=== PATIENT | female | born 1955 | race Caucasian/White ===

== ENCOUNTER 2016-07-27 07:42 | Emergency (ER) | payer BC ==
[~2016-07-27] VITALS: Ht 157.5 cm; Wt 53.2 kg
[~2016-07-27 07:42] MED LIST: XANAX0.25 M1 PO
[2016-07-27] MEDS ORDERED: DURAGESIC25 MCG/PAT TD (07:49)
[2016-07-27] MEDS ORDERED: ALPRAZOLAM0.25 MG PO (07:50)
[2016-07-27] MEDS ORDERED: FUROSEMIDE20 MG PO (07:50)
[2016-07-27] MEDS ORDERED: FENTANYL12.5 MCG/H TD (09:29)
[2016-07-27 09:43] VITALS: BP 111/65
== END 2016-07-27 09:39 | disposition home or self-care (01) ==
LOC: ED 07:42
DX: R07.89 Other chest pain (principal); S20.211A Contusion of right front wall of thorax, initial encounter; S20.212A Contusion of left front wall of thorax, initial encounter; R07.1 Chest pain on breathing; M81.0 Age-related osteoporosis without current pathological fracture; W51.XXXA Accidental striking against or bumped into by another person, initial encounter; Y92.009 Unspecified place in unspecified non-institutional (private) residence as the place of occurrence of the external cause; G89.29 Other chronic pain

== ENCOUNTER 2017-04-14 21:39 | Emergency (ER) | payer BC ==
[~2017-04-14] VITALS: Ht 157.5 cm; Wt 51.8 kg
[~2017-04-14 21:39] MED LIST changes: +ALPRAZOLAM0.25 MG PO; +DURAGESIC25 MCG/PAT TD; +FENTANYL12.5 MCG/H TD; +FUROSEMIDE20 MG PO
[2017-04-14 22:33] LABS: HEMATOCRIT 35.8 % (37.0-47.0); HEMOGLOBIN 11.6 g/dL (12.5-16.0); MEAN CELL VOLUME 86 fl (78-100); MEAN CORPUSCULAR HEMOGLOBIN 28 pg (27-31); MEAN CORPUSCULAR HGB CONC 32 g/dL (33-37); MEAN PLATELET VOLUME 9.8 fl (7.4-10.4); PLATELET COUNT 185 K/mm3 (130-400); RED BLOOD COUNT 4.17 M/mm3 (4.10-5.30); RED CELL DISTRIBUTION WIDTH 15.2 % (11.5-14.5); WHITE BLOOD COUNT 3.9 K/mm3 (4.8-10.8)
[2017-04-14 22:46] LABS: ALBUMIN 3.8 g/dL (3.5-5.0); BUN/CREATININE RATIO 28.7 (6.0-26.0); CALCIUM 8.9 mg/dL (8.4-10.2); POTASSIUM 3.5 mmol/L (3.6-5.0); TOTAL BILIRUBIN 0.4 mg/dL (0.2-1.3); TOTAL PROTEIN 6.5 g/dL (6.3-8.2)
[2017-04-14 23:00] LABS: PROTHROMBIN TIME 10.2 SECONDS (9.0-12.0)
[2017-04-14 23:02] LABS: BAND 4 % (0-10); LYMPHOCYTE 14 % (20-51); MONOCYTE 14 % (3-10); NEUTROPHILS 67 % (42-75)
[2017-04-14 23:10] LABS: PARTIAL THROMBOPLASTIN TIME 26.7 SECONDS (21.0-32.0)
[2017-04-15] MEDS ORDERED: POTASSIUM CHLO20 ME4 PO (04:24)
[2017-04-15 04:35] VITALS: BP 112/60
== END 2017-04-15 04:35 | disposition home or self-care (01) ==
LOC: ED 21:39
PROVIDERS: Family Medicine
DX: R07.89 Other chest pain (principal); G89.29 Other chronic pain

== ENCOUNTER → 2017-09-01 | Outpatient (CLI) | payer BC ==
[~2017-09-01] MED LIST changes: +POTASSIUM CHLO20 ME4 PO
== END ==
LOC: RAD 09:45
DX: M19.011 Primary osteoarthritis, right shoulder (principal)

== ENCOUNTER → 2020-03-04 | Outpatient (CLI) | payer BC ==
[2019-05-20 21:35] VITALS: BP 116/73
[~2020-03-04] MED LIST changes: +5 HTP PO; +ALENDRONATE SODI5 MG PO; +CALCIUM/MAGNESI1 T17 PO; +LEADER MELATONIN5 MG PO; +VIT D3 PO; +[UNRECOGNIZED DRUG - OTHER] PO
== END ==
LOC: MAMMO 02-19 10:00
DX: Z12.31 Encounter for screening mammogram for malignant neoplasm of breast (principal)

== ENCOUNTER → 2021-03-31 | Outpatient (CLI) | payer MEDICARE, OTHER | LOC: RAD 03-17 08:08 | DX: M47.816 Spondylosis without myelopathy or radiculopathy, lumbar region (principal); M41.86 Other forms of scoliosis, lumbar region; M48.54XA Collapsed vertebra, not elsewhere classified, thoracic region, initial encounter for fracture ==

== ENCOUNTER → 2021-05-27 | Outpatient (CLI) | payer MEDICARE, OTHER | LOC: RAD 13:49 | DX: M47.816 Spondylosis without myelopathy or radiculopathy, lumbar region (principal); M41.86 Other forms of scoliosis, lumbar region; M48.07 Spinal stenosis, lumbosacral region; G95.20 Unspecified cord compression ==

== ENCOUNTER → 2021-07-07 | Day surgery (SDC) | payer MEDICARE, OTHER | END | disposition home or self-care (01) | LOC: MSO 02:08 | DX: H25.812 Combined forms of age-related cataract, left eye (principal) | CPT/HCPCS: 00142; J0171; J2250; V2632 ==

== ENCOUNTER → 2021-08-04 | Day surgery (SDC) | payer MEDICARE, OTHER | LOC: MSO 12:05 | DX: H25.811 Combined forms of age-related cataract, right eye (principal) | CPT/HCPCS: 00142; J0171; J2250; V2632 ==

== ENCOUNTER → 2021-12-22 | Outpatient (CLI) | payer MEDICARE, OTHER | LOC: RAD 07:54 | DX: M16.12 Unilateral primary osteoarthritis, left hip (principal) ==

== ENCOUNTER → 2022-03-23 | Outpatient (CLI) | payer MEDICARE, OTHER | LOC: MAMMO 08:41 | DX: Z12.31 Encounter for screening mammogram for malignant neoplasm of breast (principal); M81.0 Age-related osteoporosis without current pathological fracture; Z79.83 Long term (current) use of bisphosphonates; Z87.81 Personal history of (healed) traumatic fracture ==

== ENCOUNTER → 2022-03-23 | Outpatient (CLI) | payer MEDICARE, OTHER | LOC: MAMMO 08:45 → RAD 08:45 → MAMMO 09:15 | DX: Z13.820 Encounter for screening for osteoporosis (principal); Z12.31 Encounter for screening mammogram for malignant neoplasm of breast; M81.0 Age-related osteoporosis without current pathological fracture; Z78.0 Asymptomatic menopausal state ==

== ENCOUNTER → 2022-05-19 | Outpatient (CLI) | payer MEDICARE, OTHER | LOC: RAD 05-18 08:45 | DX: N26.1 Atrophy of kidney (terminal) (principal); N18.32 Chronic kidney disease, stage 3b ==

== ENCOUNTER → 2023-07-19 | Outpatient (CLI) | payer MEDICARE, OTHER ==
[2023-09-07 10:53] LABS: CREATININE OTHER SOURCE AMS
[2023-09-07 11:46] LABS: CALCIUM 10.1 mg/dL (8.3-10.5)
== END ==
LOC: LAB 07:15
PROVIDERS: Internal Medicine Nephrology
DX: N18.32 Chronic kidney disease, stage 3b (principal); E87.6 Hypokalemia; D63.1 Anemia in chronic kidney disease

== ENCOUNTER → 2023-08-14 | Day surgery (SDC) | payer MEDICARE, OTHER ==
[~2023-08-14] MED LIST changes: +Lidocaine PF 2% (20 MG/ML) 2 ML VIAL ONE
== END | disposition home or self-care (01) ==
LOC: MSO 07:33
DX: Z12.11 Encounter for screening for malignant neoplasm of colon (principal); Z85.048 Personal history of other malignant neoplasm of rectum, rectosigmoid junction, and anus
CPT/HCPCS: 00812; J2704; J7120

== ENCOUNTER 2023-11-21 23:24 | Emergency (ER) | payer MEDICARE, OTHER ==
[~2023-11-21] VITALS: Ht 162.6 cm; Wt 66.8 kg
[~2023-11-21 23:24] MED LIST changes: -Lidocaine PF 2% (20 MG/ML) 2 ML VIAL ONE
[2023-11-21 23:41] LABS: BASO # 0.04 K/mm3 (0.02-0.10); EOS # 0.17 K/mm3 (0.04-0.40); EOS % 2.5 % (1.0-5.0); HEMATOCRIT 42.7 % (37.0-47.0); HEMOGLOBIN 14.1 g/dL (12.5-16.0); LYMPH# 2.19 K/mm3 (1.50-4.00); MEAN CELL VOLUME 85 fl (78-100); MEAN CORPUSCULAR HEMOGLOBIN 28 pg (27-31); MEAN CORPUSCULAR HGB CONC 33 g/dL (33-37); MEAN PLATELET VOLUME 9.5 fl (7.4-10.4); NEU # 3.64 K/mm3 (1.40-6.50); PLATELET COUNT 267 K/mm3 (130-400); RED BLOOD COUNT 5.05 M/mm3 (4.10-5.30); RED CELL DISTRIBUTION WIDTH 13.4 % (11.5-14.5); WHITE BLOOD COUNT 6.8 K/mm3 (4.8-10.8)
[2023-11-21 23:49] LABS: ALBUMIN 4.3 g/dL (3.4-4.8)
[2023-11-21 23:50] LABS: SODIUM 140 mmol/L (136-145)
[2023-11-21 23:52] LABS: GLUCOSE 102 mg/dL (65-105); TOTAL PROTEIN 6.8 g/dL (6.2-8.1)
[2023-11-21 23:53] LABS: CARBON DIOXIDE 23 mmol/L (23-31)
[2023-11-21 23:54] LABS: TOTAL BILIRUBIN 0.3 mg/dL (0.2-1.2)
[2023-11-21 23:57] LABS: AST-SGOT 18 U/L (5-34)
[2023-11-21 23:59] LABS: ALT/SGPT 14 U/L (0-55)
[2023-11-22 00:05] LABS: TROPONIN-I < 0.030 ng/mL (0.00-0.033)
[2023-11-22 03:43] VITALS: BP 125/76
== END 2023-11-22 03:30 | disposition home or self-care (01) ==
LOC: ED 23:24
PROVIDERS: Physician Assistant
DX: R07.9 Chest pain, unspecified (principal)

== ENCOUNTER → 2024-01-15 | Outpatient (CLI) | payer MEDICARE, OTHER ==
[2024-01-15 16:32] LABS: CALCIUM 10.1 mg/dL (8.3-10.5)
== END ==
LOC: LAB 12:58
PROVIDERS: Internal Medicine Nephrology
DX: N18.32 Chronic kidney disease, stage 3b (principal); D63.1 Anemia in chronic kidney disease; E87.6 Hypokalemia